=== PATIENT | female | born 1960 | race Caucasian/White ===

== ENCOUNTER 2022-11-03 08:48 | Emergency (ER) | payer OTHER ==
[~2022-11-03] VITALS: Ht 172.7 cm; Wt 63.6 kg
[2022-11-03 09:14] VITALS: BP 115/80
[2022-11-03] MEDS ORDERED: BUPR1FIL3 SL (11:15)
== END 2022-11-03 11:56 | disposition home or self-care (01) ==
LOC: ER 08:48
DX: F11.10 Opioid abuse, uncomplicated (principal); Z76.0 Encounter for issue of repeat prescription; Z88.2 Allergy status to sulfonamides; Z79.899 Other long term (current) drug therapy
CPT/HCPCS: 99281